=== PATIENT | female | born 1960 | race Caucasian/White ===

== ENCOUNTER 2017-06-21 10:13 | Outpatient (CLI) | payer BC ==
--- NOTE | 2017-06-21 13:31 | RAD ---
BARIUM ENEMA: HISTORY: Incomplete colonoscopy due to inability to pass through the sigmoid colon region. FINDINGS: Barium was introduced into the rectum in a retrograde fashion without difficulty. There is an approx imately 6 cm segment of narrowing of the sigmoid colon. There is minimal diverticular disease in thi s area. The remainder of the colon is normal in caliber. I see no filling defects or mass. IMPRESSION: Approximately 6 cm segment of narrowing of the sigmoid colon with minimal diverticular disease in thi s area. This does not have the typical appearance of a neoplastic stricture, but this is not exclude d. It could be possibly on the basis of diverticular disease or some type of extrinsic changes causi ng an area of narrowing. POS: [facility]
== END 2017-06-21 10:14 | disposition home or self-care (01) ==
LOC: RAD 10:13
PROVIDERS: ATTEND Internal Medicine Gastroenterology
DX: K56.699 Other intestinal obstruction unspecified as to partial versus complete obstruction (principal)
CPT/HCPCS: 74270

== ENCOUNTER 2017-06-25 06:40 | Inpatient (IN) | payer BC ==
[2017-06-21 17:20] VITALS: BMI 19.0
--- NOTE | 2017-06-21 22:37 | HP ---
HISTORY OF PRESENT ILLNESS: Angelique Figueroa is a 57-year-old female, full-time mother, one child adopted, 6. Patient has and states she has experienced fever and left lower quadrant pain, thought initially be UTI, initiated antibiotic treatment, resolved the fever, but urine culture was negative. She was initially cared for by Dr. Gallardo's PA. She was reevaluated, and Dr. Farmer saw her today, and colono scopy performed at his center revealing a stricture of the distal sigmoid colon that Dr. Farmer could n ot pass. She was referred to [facility] for a barium enema, revealing high-grade sigmoi d stricture. Barium enema was otherwise unremarkable. The patient had laboratories at [facility] on 2016, CBC and comprehensive metabolic profile that were unremarkable. Cholesterol panel was normal a s were her lipids. Patient reports postprandial pain, left lower quadrant with cramps and nausea 15-30 minutes after eat ing. She has been on mostly liquids. She has lost 7 to 9 pounds in the last 4 weeks. The patient has a history of endometriosis and underwent 2 operations at age 25 for a total abdomina l hysterectomy after initially presenting with a chocolate cyst endometrial. At 27 years of age, she had had an operation because of adhesions causing a bowel obstruction. She has had a cholecystectom y in the past. The patient presents to my office today same-day after her attempted colonoscopy and barium enema and discussion held regarding treatment. Plan is for her to continue liquids over the w eekend and an attempt Suprep bowel prep over the most of the day on Saturday, , and take m agnesium citrate Saturday, e, stay on liquids and plan antibiotic bowel prep and undergo 06/25/2017, laparoscopic-assisted sigmoid colon resection with anastomosis. She un derstands she may need a protective ileostomy. She understands that she may need to have an open pro cedure because of adhesions. She understands the risk of infection, bleeding, ureteral injury, bladd er injury, small bowel injury resection and consents. We will proceed. She wishes to have this done as soon as possible because of her pain and discomfort. ALLERGIES: None. TOBACCO: None. ALCOHOL: Rarely. MEDICATIONS: MiraLax, multivitamins. PAST MEDICAL HISTORY: As noted above, 25 years of age, unilateral oophorectomy for a chocolate cyst and endometriosis and just a few months after that total hysterectomy, cyst on remaining ovary, appen dectomy performed; at 27 years of age, laparotomy, Pfannenstiel for bowel obstruction; 15 to 18 years ago, cholecystectomy. REVIEW OF SYSTEMS: Ten point noncontributory. She has not had any cardiac history. PHYSICAL EXAMINATION: VITAL SIGNS: 124 pounds, 5 feet 8 inches, 136/65, 90, 98.6 degrees. HEAD, EARS, EYES, NOSE, AND THROAT: : Unremarkable. LUNGS: Clear to auscultation. CARDIAC: Regular rate and rhythm without murmur or gallop. ABDOMEN: Soft, mildly distended, mildly tympanitic and nontender. No guarding. EXTREMITIES: Unremarkable. No ankle edema. LYMPH: No lymphadenopathy in neck, axillae or groins. NEUROLOGIC: Neurologically intact. No focal deficits. ASSESSMENT AND PLAN: Sigmoid stricture, high grade partial obstruction. She will stay on mostly liq uids in the next few days, attempt a bowel prep the day before operation, magnesium citrate today gopal or to that, and plan laparoscopic-assisted sigmoid colon resection with possible protective ileostomy . She understands the risks and benefits of the procedure and consents. Questions answered.
[2017-06-25] MEDS ORDERED: Ketorolac Tromethamine 30 MG/ML VIAL ONE (07:23)
[2017-06-25] MEDS ORDERED: Ketorolac Tromethamine 30 MG/ML VIAL IVP SCH ×2 (07:30→18:00)
[2017-06-25] MEDS ORDERED: cefOXitin Sodium 2 GM, Syringe 1 ML in Sterile Water 10 ML SLOW IVP SCH (07:30)
[2017-06-25] MEDS ORDERED: Scopolamine 1.5 mg/72 hour Patch TOP SCH (07:30)
[2017-06-25 07:52] LABS: Hemoglobin A1c 5.1 % (4.0-6.0)
[2017-06-25] MEDS ORDERED: Bupivacaine/Epinephrine 0.25% 30 ML VIAL ONE ×2 (08:29→09:29)
[2017-06-25] MEDS ORDERED: Fentanyl 100 MCG/2 ML VIAL ONE ×2 (08:31→08:43)
[2017-06-25] MEDS ORDERED: Midazolam HCl 2 mg/2 ml Vial ONE (08:31)
--- NOTE | 2017-06-25 10:32 | EKG ---
Test Reason : PREOP Blood Pressure : / mmHG Vent. Rate : 070 BPM Atrial Rate : 070 BPM P-R Int : 112 ms QRS Dur : 084 ms QT Int : 424 ms P-R-T Axes : 060 062 048 degrees QTc Int : 457 ms Normal sinus rhythm Nonspecific T wave abnormality Abnormal ECG No previous ECGs available Confirmed by DR. Shilpa GARCIAS ([id number]) on 06/25/2017 10:32:04 AM Referred By: KWABENA Confirmed By:DR. Shilpa GARCIAS
[2017-06-25] MEDS ORDERED: Ondansetron HCl/PF 4 MG/2 ML Vial IVP PRN ×3 (12:32→13:15)
[2017-06-25] MEDS ORDERED: hydrALAZINE 20 MG/ML VIAL SLOW IVP PRN (12:32)
[2017-06-25] MEDS ORDERED: Promethazine HCl 25 MG/ML VIAL IM PRN ×2 (12:50→13:15)
[2017-06-25] MEDS ORDERED: Promethazine HCl 25 MG/ML VIAL SLOW IVP PRN (12:50)
[2017-06-25] MEDS ORDERED: Zolpidem Tartrate 5 MG TAB PO PRN (13:15)
[2017-06-25] MEDS ORDERED: HYDROcodone/Acetaminophen 5/325 mg Tablet PO PRN ×2 (13:15)
[2017-06-25] MEDS ORDERED: Eucerin (Mineral Oil/Petrolatum,White) 30 gm Jar TOP PRN (13:15)
[2017-06-25] MEDS ORDERED: Naloxone HCl 0.4 mg/ml Vial IVP PRN (13:15)
[2017-06-25] MEDS ORDERED: diphenhydrAMINE 25 MG CAP PO PRN (13:15)
[2017-06-25] MEDS ORDERED: diphenhydrAMINE 50 MG/ML VIAL IM PRN (13:15)
[2017-06-25] MEDS ORDERED: diphenhydrAMINE 50 MG/ML VIAL IVP PRN (13:15)
[2017-06-25] MEDS ORDERED: Bupivacaine 0.25% 10 ML VIAL EPIDURAL PRN (13:15)
[2017-06-25] MEDS ORDERED: Fentanyl/Bupivacaine 250 ML in Premix Bag 1 BAG EPIDURAL SCH (13:15)
[2017-06-25] MEDS ORDERED: Ketorolac Tromethamine 30 MG/ML VIAL IVP PRN (13:15)
[2017-06-25] MEDS ORDERED: Promethazine HCl 25 MG SUPP PR PRN (13:15)
[2017-06-25] MEDS ORDERED: Naloxone HCl 0.4 mg/ml Vial IV PRN (13:15)
--- NOTE | 2017-06-25 16:56 | OP ---
DATE OF PROCEDURE: 06/25/2017 PREOPERATIVE DIAGNOSES: High grade partial obstruction, sigmoid colon with stricture, history of end ometriosis. POSTOPERATIVE DIAGNOSES: High grade partial obstruction, sigmoid colon with stricture, history of en dometriosis with excellent colon prep and nondistended colon. Ureter caught in the inflammatory pro cess left pelvis. PROCEDURE: Laparoscopic mobilization of splenic flexure, descending colon, sigmoid colon resection, primary colorectal anastomosis 33 mm EEA checked under water and no leaks. SURGEON: Dr. Quinten Rubin ANESTHESIA: General, epidural. ESTIMATED BLOOD LOSS: 73 mL. BLOOD TRANSFUSED: None. FINDINGS: Inflammatory process left pelvic sidewall involving the left ureter, carefully dissected f ree laparoscopically and then converted to a lower midline for proper identification and ureteral saf ety. PROCEDURE: The patient was taken to the operating room where under general and epidural anesthesia, abdomen was prepared with ChloraPrep as well as the buttocks and perineum with Betadine in the dorsol ithotomy position. Infraumbilical incision made and pneumoperitoneum to 15 mmHg obtained with the Ve ress needle, replacing it with a 5 port. Video laparoscope inserted. Bilateral far lateral subcosta l incision made and 5 ports placed. Left lower quadrant incision made and a 5 port placed. Right lo wer quadrant incision made and a 12 port placed. These were all placed under laparoscopic visualizat ion. There were no incisional adhesions in the abdominal cavity. Omentum was dissected free from th e distal transverse colon and the splenic flexure and the splenic flexure and the left colon mobilize d. This was done laparoscopically keeping the colon free of harm. Dissection carried down to the up per sigmoid colon which was adherent to the lateral pelvic side wall. We then dissected the descendi ng colon and proximal sigmoid colon, reflecting it medially. The left ureter identified and traced d own to the inflammatory process and heavily involved in the inflammatory process, was tightly adheren t to the sigmoid colon. We then dissected the distal sigmoid colon and rectum free as much as safely possible, circumscribing the peritoneum and taking it down. The proximal colon was adequately mobil ized for a tension-free anastomosis into the pelvis. At this point, a lower midline incision made be low the umbilicus to the pubis and carried down through the skin and subcutaneous tissue, midline fas anna, entering the abdominal cavity sharply with the cautery and good gaining good hemostasis. Brianwa lter retractor used. The inflammatory process left pelvic side wall was carefully freed from the col on keeping the left ureter free of harm. There was an inflammatory encasement of the ureter, it was left in place. Prior to converting to a lower midline open operation the proximal sigmoid colon was divided with Endo blue load stapler 2 fires. Once the colon was freed, the rectosigmoid was freed, t he left colic vessels vascular pedicle divided with white load PIERRE stapler. Sigmoid colon mobi lized down to the rectum was divided with 2 fires of the Endo-PIERRE stapler. Once this was completed, the proximal colon staple line was removed sequestering it with towels protecting the wound. The 33 mm EEA anvil placed in the more proximal colon and a pursestring suture of 2-0 Prolene applied and th en our gloves and gowns were change. The anus and rectum was gently dilated with a dilator up to a 3 3 mm dilator and then a 33 mm stapler placed in the rectal stump visualized through the open wound an d the anvil advanced through the staple line in proper position and connected to the proximal anvil a nd the colorectal anastomosis was then approximated within the torque fire range and the stapler fire d, released, removed. Donuts noted to be intact. The anterior staple lines reinforced with interrup alexx Lembert suture of 3-0 silk. Anastomosis checked under water and there was no leak. The left ure ter was kept free of harm. There was no blood. There was no blood in the urine bag. Abdominal cavi ty irrigated and irrigant evacuated. Hemostasis noted. Sponge and instrument counts were correct, m idline fascia closed with continuous suture of #1 PDS and laparoscopic incisional midline incision cl osed with 4-0 Monocryl subcuticular suture. The patient tolerated the procedure well.
[2017-06-25] MEDS: Potassium Chloride 20 MEQ in Lactated Ringer's 1,000 ML IV SCH (17:29)
[2017-06-25] MEDS: Acetaminophen 1,000 MG in Premix Bag 1 BAG IVPB SCH ×2 (17:30→23:47)
[2017-06-25] MEDS ORDERED: Glycopyrrolate 0.2 MG/ML 5 ML SYRINGE ONE (17:33)
[2017-06-25] MEDS ORDERED: Ondansetron HCl/PF 4 MG/2 ML Vial ONE (17:33)
[2017-06-25] MEDS ORDERED: Propofol 200 MG/20 ML VIAL ONE (17:33)
[2017-06-25] MEDS ORDERED: Lidocaine 1% PF 5 ML VIAL ONE (17:33)
[2017-06-25] MEDS ORDERED: Dexamethasone 20 MG/5 ML VIAL ONE (17:33)
[2017-06-25] MEDS: Famotidine/PF 20 mg/2ml Vial SLOW IVP SCH (20:29)
[2017-06-26] MEDS: Potassium Chloride 20 MEQ in Lactated Ringer's 1,000 ML IV SCH ×3 (01:39→11:36)
[2017-06-26 05:04] LABS: #Basophils 0.1 thou/uL (0.0-0.2); #Lymphocytes 0.9 thou/uL (1.20-3.40); #Monocytes 0.7 thou/uL (0.11-0.59); #Neutrophils 9.3 thou/uL (1.40-6.50); %Basophils 0.9 % (0.0-1.0); %Eosinophils 0.3 % (0.0-10.0); %Lymphocytes 7.7 % (21.0-51.0); %Monocytes 6.4 % (0.0-10.0); Hematocrit 34.7 % (36.0-47.0); Mean Platelet Volume 8.5 fL (7.4-10.4); Red Blood Cell (RBC) Count 3.62 mill/uL (4.20-5.40)
[2017-06-26 06:05] LABS: Anion Gap 11 mmol/L (10-20); BUN (Urea Nitrogen) 8 mg/dL (9.8-20.1); Calc. Creatinine Clearance 75 mL/min (70-130); Calcium 9.1 mg/dL (7.8-10.44); Carbon Dioxide 27 mmol/L (22-29); Chloride 105 mmol/L (98-107); Estimated GFR-MDRD 82
[2017-06-26] MEDS: Acetaminophen 1,000 MG in Premix Bag 1 BAG IVPB SCH ×2 (06:48→11:36)
[2017-06-26] MEDS: Famotidine/PF 20 mg/2ml Vial SLOW IVP SCH ×2 (09:28→21:06)
[2017-06-26] MEDS ORDERED: Ibuprofen 600 MG TAB PO PRN (14:10)
[2017-06-26] MEDS ORDERED: traMADol HCl 50 MG TAB PO PRN ×2 (14:10)
[2017-06-26] MEDS ORDERED: Acetaminophen 500 MG TAB PO PRN (14:10)
--- NOTE | 2017-06-26 14:16 | PRG ---
DATE OF SERVICE: 06/26/2017 SUBJECTIVE: Ms. Figueroa is doing well today. One day status post laparoscopic assisted sigmoid resecti on for obstruction. At the time of operation, she did not have any proximal colonic dilatation and i leostomy diversion protector was not necessary. The patient denies having any nausea or vomiting. S he is tolerating full liquids without problems. OBJECTIVE: LUNGS: Clear to auscultation. CARDIAC: Regular rate and rhythm without murmur or gallop. ABDOMEN: Soft, nontender, nondistended. Wound looks good. ASSESSMENT AND PLAN: Doing well status post colon resection. This morning, white count 11, hemoglob in 11. Basic metabolic profile was normal. At this point, I would increase her to a soft diet tomor row. She has a lumbar epidural. We will plan to remove her epidural in the morning and hopefully rc cali will be ready to go home tomorrow.
[2017-06-27] MEDS: Famotidine/PF 20 mg/2ml Vial SLOW IVP SCH (08:24)
[2017-06-27] MEDS ORDERED: Fentanyl 100 MCG/2 ML VIAL SLOW IVP PRN (10:12)
[2017-06-27] MEDS ORDERED: HYDROcodone/Acetaminophen 7.5/325 mg Tablet PO PRN ×2 (10:14)
[2017-06-27 11:24] VITALS: BP 112/70; TEMP 98.4
[2017-06-27] MEDS ORDERED: traMADol HCl 50 MG TAB PO PRN ×2 (13:30)
--- NOTE | 2017-06-27 13:49 | PRG ---
DATE OF SERVICE: 06/27/2017 SUBJECTIVE: Ms. Angelique Figueroa is doing well today. Pathology, diverticulitis. Patient is passing gas and tolerating her diet. She has voided since removal of her lumbar epidural. She is taking oral an algesics. OBJECTIVE: VITAL SIGNS: Stable, afebrile. LUNGS: Clear to auscultation. CARDIAC: Regular rate and rhythm without murmur or gallop. ABDOMEN: Soft and nontender. ASSESSMENT AND PLAN: Doing well. We will plan discharge home today and pain management program, ove [id number] Tylenol, ibuprofen and if needed, Ultram. No lifting over 25 pounds for 6 weeks. Follow up in my office in 2-3 weeks.
--- NOTE | 2017-06-27 23:03 | DIS ---
DATE OF ADMISSION: 06/25/2017 DATE OF DISCHARGE: 06/27/2017 DISCHARGE DIAGNOSES: Diverticulitis with high-grade partial obstruction. PROCEDURES: Preoperative colonoscopy. Dr. Famrer revealed high-grade obstruction, he could not pass the scope beyond. Barium enema revealed high-grade obstruction. Her bowel prep for the colonoscopy was intolerable. Patient after that proc edure, stayed on clear liquids over the [place] holidays and brought in 06/25/2017 for laparoscopic -assisted sigmoid colon resection. She had an inflammatory process in the sigmoid colon adherent to the ureter required infraumbilical incision for safe dissection. Postoperatively, she convalesced, t olerated diet. She is being discharged home with followup in my office in 2-3 weeks. Pathology reve aled diverticulitis and pain management will include [id number] Tylenol 1000 mg t.i.d. p.r.n., Motrin 600 mg p.o. q.i.d. p.r.n., Ultram 50 one to two p.o. q.i.d. p.r.n. pain, #25, two refills. No lifting over 25 pounds.
== END 2017-06-27 15:15 | disposition home or self-care (01) | DRG 330 ==
LOC: SURG A 06:40 → SJJU 14:17
PROVIDERS: ADMIT Specialist; ATTEND Specialist
PROC: 0DTN4ZZ Resection of Sigmoid Colon, Percutaneous Endoscopic Approach (ICD-10-PCS; principal; 2017-06-25)
PROC: 3E0T3BZ Introduction of Anesthetic Agent into Peripheral Nerves and Plexi, Percutaneous Approach (ICD-10-PCS; 2017-06-25)
DX: K56.600 Partial intestinal obstruction, unspecified as to cause (principal); K57.32 Diverticulitis of large intestine without perforation or abscess without bleeding; Z90.49 Acquired absence of other specified parts of digestive tract; Z90.710 Acquired absence of both cervix and uterus; Z90.721 Acquired absence of ovaries, unilateral
CPT/HCPCS: 36415; 36416; 80048; 83036; 85025; 88302; 88307; 93005; 93010; A4216; J0131; J0694; J1100; J1885; J2001; J2250; J2405; J2704; J3010; J3480; J7120; S0028

== ENCOUNTER 2019-03-11 07:11 | Outpatient (CLI) | payer BC ==
--- NOTE | 2019-03-11 09:59 | CT ---
CT ABDOMEN AND PELVIS WITH AND WITHOUT IV CONTRAST FOLLOWING THE ENTEROGRAPHY PROTOCOL 03/11/2019 CLINICAL INFORMATION: Change in bowel habits. Diarrhea. History of cholecystectomy and appendectomy as well as partial chelsea ctomy. COMPARISON: None. Technique: Multiple contiguous axial CT images are obtained through the abdomen and pelvis with IV contrast. Cor onal reformatted images are provided. FINDINGS: Lower Chest: within normal limits. Vessels: Minimal vascular calcifications are seen in the abdominal aorta. Abdomen: Portal vein:Patent Gallbladder: Surgically absent. Liver: within normal limits. Spleen: within normal limits. Pancreas: within normal limits. Adrenals: within normal limits. Kidneys: within normal limits. Bowel: Postsurgical changes related to partial colectomy are noted. The colonic anastomosis is seen w ithin the pelvis at the level of the rectum. A [id number] amount retained fecal material is seen throughout the colon. There is suggestion of mild thickening involving portions of the duodenum, but this does not persist on all phases of imaging and is likely related to peristalsis. The loops of small bowel are normal in caliber. Appendix: Not visualized. Patient reports history of appendectomy. Peritoneum: No ascites or free air; no fluid collection. Mesentery and Retroperitoneum: No enlarged mesenteric or retroperitoneal lymph nodes. Abdominal Wall: within normal limits. Pelvis: Reproductive Organs: Evidence of hysterectomy. Pelvis within normal limits. Bladder: within normal limits. Bones: within normal limits. IMPRESSION: 1. No acute findings are seen in the abdomen or pelvis. 2. Postsurgical changes related to cholecystectomy and hysterectomy. 3. Postsurgical changes related to partial colectomy. A moderate amount retained fecal material is se en throughout the colon. 4. Loops of small bowel are normal in caliber. No focal bowel wall thickening is appreciated.
[2019-03-11] MEDS ORDERED: Iopamidol 370 76% 100 ML VIAL ONE (11:10)
== END 2019-03-11 07:12 | disposition home or self-care (01) ==
LOC: CT 07:11
PROVIDERS: ATTEND Internal Medicine Gastroenterology
DX: R10.9 Unspecified abdominal pain (principal); R19.4 Change in bowel habit; Z98.890 Other specified postprocedural states; Z86.010 Personal history of colon polyps; K59.00 Constipation, unspecified
CPT/HCPCS: 74178; 82565; Q9967

== ENCOUNTER 2019-09-05 09:36 | Emergency (ER) | payer BC ==
--- NOTE | 2019-09-05 10:30 | RAD ---
EXAM: Portable chest PROVIDED CLINICAL HISTORY: Chest pain COMPARISON: None FINDINGS: Cardiac and mediastinal silhouette is within normal limits. No focal consolidation, pleural fluid or pneumothorax evident. IMPRESSION: No evidence for an acute cardiopulmonary process.
[2019-09-05 10:33] LABS: Hemoglobin 15.3 g/dL (12.0-16.0); Mean Corpuscular HGB CONC 33.5 g/dL (32.0-36.0); Mean Corpuscular Volume 92.4 fL (78.0-98.0); Mean Platelet Volume 8.4 fL (7.4-10.4); Platelet Count 200 thou/uL (130-400); RBC Distribution Width 11.1 % (11.5-14.5); Red Blood Cell (RBC) Count 4.95 mill/uL (4.20-5.40); White Blood Cell (WBC) Count 3.2 thou/uL (4.8-10.8)
[2019-09-05 10:44] LABS: Band 2 % (5-11); Large Platelets SLIGHT; Lymphocytes 30 % (21-51); MDiff Complete? YES; Monocytes 22 % (0-10); Neutrophil 40 % (42-75); Platelet Morphology Comment Appears Adequate; Reactive Lymphocytes 6 % (0-10)
[2019-09-05 10:46] LABS: ALT (SGPT) 14 U/L (8-55); AST (SGOT) 20 U/L (5-34); Albumin 4.3 g/dL (3.5-5.0); Alkaline Phosphatase 78 U/L (40-110); Anion Gap 12 mmol/L (10-20); BUN (Urea Nitrogen) 8 mg/dL (9.8-20.1); Bilirubin, Total 0.8 mg/dL (0.2-1.2); Calc. Creatinine Clearance 0 mL/min (70-130); Calcium 8.9 mg/dL (7.8-10.44); Carbon Dioxide 28 mmol/L (22-29); Chloride 100 mmol/L (98-107); Estimated GFR-MDRD 79; Globulin 2.4 g/dL (2.4-3.5); Glucose 105 mg/dL (70-105); Lipase 27 U/L (8-78); Protein, Total 6.7 g/dL (6.0-8.3); Sodium 136 mmol/L (136-145)
[2019-09-05 11:04] LABS: Bilirubin Negative (Negative); Blood, Urine Negative (Negative); Clarity Clear (Clear); Glucose, Urine (Dipstick) Normal (Negative); Leukocyte Negative Leu/uL (Negative); Nitrite Negative (Negative); Protein, Urine (Dipstick) Negative (Neg-Trace); Urobilinogen Normal mg/dL (Less than 2)
--- NOTE | 2019-09-05 12:23 | CT ---
CT ABDOMEN AND PELVIS WITH IV CONTRAST: HISTORY: Abdominal pain and fever. COMPARISON: 03/11/2019. FINDINGS: The lung bases are clear. The patient is post cholecystectomy, hysterectomy, partial colectomy, and appendectomy. The liver, spleen, pancreas, adrenal glands, and kidneys are normal. No free air, mirna e fluid, or lymphadenopathy is seen in the abdomen or pelvis. The small bowel loops are not abnormal ly dilated. There is no evidence of aneurysmal dilatation of the abdominal aorta. There are mild de generative changes in the spine. IMPRESSION: No evidence of acute process. POS: [facility]
[2019-09-05] MEDS ORDERED: Iopamidol-370 76% 500 ML 1 ML ONE (14:18)
== END 2019-09-05 14:30 | disposition home or self-care (01) ==
LOC: ERS 09:36
DX: R53.83 Other fatigue (principal); R50.9 Fever, unspecified; R10.9 Unspecified abdominal pain; M54.9 Dorsalgia, unspecified; R07.81 Pleurodynia
CPT/HCPCS: 71045; 74177; 80053; 81003; 83690; 83735; 83880; 84484; 85025; 93005; 96360; Q9967

== ENCOUNTER 2021-07-07 00:19 | Emergency (ER) | payer BC ==
[2021-07-07] MEDS ORDERED: Ketorolac Tromethamine 30 MG/ML VIAL ONE (00:41)
[2021-07-07] MEDS ORDERED: Morphine 4 MG/ML VIAL ONE (00:41)
[2021-07-07] MEDS ORDERED: Diazepam 2 MG TAB PO SCH (01:30)
== END 2021-07-07 01:43 | disposition home or self-care (01) ==
LOC: ERS 00:19
DX: M54.42 Lumbago with sciatica, left side (principal)
CPT/HCPCS: 96372; 99283; J1885; J2270